=== PATIENT | male | born 1975 | race African-American/Black ===

== ENCOUNTER 2018-11-05 00:50 | Emergency (ER) | payer SELFPAY ==
[~2018-11-05] VITALS: Ht 175.3 cm; Wt 120.4 kg
[2018-11-05] MEDS ORDERED: SULFACET SOD10 % OS (01:12)
[2018-11-05 01:18] VITALS: BP 135/86
== END 2018-11-05 01:18 | disposition home or self-care (01) | DRG 125 ==
LOC: ED 00:50
DX: S05.02XA Injury of conjunctiva and corneal abrasion without foreign body, left eye, initial encounter (principal); X58.XXXA Exposure to other specified factors, initial encounter; Y92.89 Other specified places as the place of occurrence of the external cause; Y99.0 Civilian activity done for income or pay